=== PATIENT | female | born 1970 | race Caucasian/White ===

== ENCOUNTER → 2024-05-02 14:24 | Outpatient (REF) | payer BC, SELFPAY | LOC: EMG 14:24 | PROVIDERS: ATTENDING PHYSICIAN Orthopaedic Surgery Hand Surgery; FAMILY PHYSICIAN Internal Medicine; REFERRING PHYSICIAN Internal Medicine Rheumatology | DX: R20.0 Anesthesia of skin (principal); M25.532 Pain in left wrist; M25.531 Pain in right wrist; M13.0 Polyarthritis, unspecified | CPT/HCPCS: 72040; 72072; 72100; 72200; 73523; 73560; 73565; 95886; 95911 ==

== ENCOUNTER → 2024-08-22 12:40 | Outpatient (REF) | payer BC, SELFPAY | LOC: WDC 12:40 | PROVIDERS: ATTENDING PHYSICIAN Nurse Practitioner Adult Health | DX: Z12.31 Encounter for screening mammogram for malignant neoplasm of breast (principal); I27.20 Pulmonary hypertension, unspecified; M34.81 Systemic sclerosis with lung involvement | CPT/HCPCS: 94727; 94729; 77063; 77067; 88738; 93306; 94010 ==